=== PATIENT | female | born 1985 | race Caucasian/White ===

== ENCOUNTER 2016-05-03 23:43 | Emergency (ER) | payer SELFPAY ==
[~2016-05-03] VITALS: Ht 162.6 cm; Wt 80.0 kg
[~2016-05-03 23:43] MED LIST: ABIL5TAB6 PO; BECL80AE3 INH; CIPR250T2 PO; TRAZ100 PO; VENTAER INH; ZOLO20CO PO
[2016-05-03 23:46] VITALS: BP 148/89; PULSE 99; RESP 16; TEMP 98; O2SAT 96
[2016-05-04] MEDS ORDERED: SODIUM CHLOR 0.9% 1000 ML INJ 1,000 ML IV ONE (03:07)
[2016-05-04] MEDS ORDERED: ONDANSETRON HCL 4 MG/2 ML VIAL IVP ONE (03:15)
[2016-05-04] MEDS ORDERED: SODIUM CHLORIDE 0.9% FLUSH 5 ML FLUSH IVF PRN (03:15)
--- NOTE | 2016-05-04 03:41 | PD ---
HPI Chief Complaint: GI Complaint Time Seen by Provider: 03:07 Travel History International Travel<30 days: No Contact w/Intl Traveler<30days: No Traveled to known affect area: No History of Present Illness HPI 30 year-old female presents to the emergency department for complaint of nausea vomiting diarrhea and feeling short of breath. Patient states symptoms times one day. No fever or chills. No sore throat earache cough congestion or chest pain. Generalized discomfort 5/10 in intensity. Patient reports history of asthma as a child. PFSH Past Medical History Narrative Medical Asthma, anxiety depression, tubal ligation, tobacco use, nursing notes reviewed Asthma: Yes Respiratory: Yes (ASTHMA) Tetanus Vaccination: > 5 Years Influenza Vaccination: No ?: Not Tubal Ligation: Yes Social History Alcohol Use: No Tobacco Use: No Substance Use: No Allergies-Medications (Allergen,Severity, Reaction): Coded Allergies: Amoxicillin (Verified Allergy, Unknown, 05/03/16) Penicillin (Unverified Allergy, Unknown, Hives, 05/03/16) Reported Meds & Prescriptions Reported Meds & Active Scripts Active Proventil Hfa 6.7 GM Inh (Albuterol Sulfate) 90 Mcg/Act Aer 2 Puff INH Q4-6H PRN Phenergan (Promethazine HCl) 25 Mg Tab 25 Mg PO Q6H PRN Ciprofloxacin Hcl (Ciprofloxacin HCl) 250 Mg Tab 250 Mg PO BID Take for uti on Labs. Qvar 80 mcg (Beclomethasone Dipropionate) 80 Mcg Aer 2 Puff INH BID [id number] 18 Gm Aero 2 Puff INH Q4H PRN * SHAKE WELL BEFORE USE * Reported Trazodone HCl 100 Mg Tab 100 Mg PO HS Abilify 5 mg (Aripiprazole) 5 mg Tab 1 Tab PO DAILY Zoloft (Sertraline HCl) 20 Mg/Ml Con 100 Mg PO DAILY Review of Systems Except as stated in HPI: all other systems reviewed are Neg Physical Exam Narrative GENERAL: Well-developed well-nourished female in no acute distress no respiratory distress SKIN: Warm and dry. HEAD: Normocephalic. EYES: No scleral icterus. No injection or drainage. NECK: Supple, trachea midline. No JVD or lymphadenopathy. CARDIOVASCULAR: Regular rate and rhythm without murmurs, gallops, or rubs. RESPIRATORY: Breath sounds equal bilaterally. No accessory muscle use. GASTROINTESTINAL: Abdomen soft, non-tender, nondistended. MUSCULOSKELETAL: No cyanosis, or edema. BACK: Nontender without obvious deformity. No CVA tenderness. Data Data Last Documented VS Vital Signs Date Time Temp Pulse Resp B/P Pulse Ox O2 Delivery O2 Flow Rate FiO2 05/04/16 05:29 98.1 78 18 108/78 97 Room Air Orders Complete Blood Count With Diff (05/04/16 03:07) Basic Metabolic Panel (Bmp) (05/04/16 03:07) Urinalysis - C+S If Indicated (05/04/16 03:07) Iv Access Insert/Monitor (05/04/16 03:07) Ecg Monitoring (05/04/16 03:07) Oximetry (05/04/16 03:07) Ondansetron Inj (Zofran Inj) (05/04/16 03:15) Sodium Chlor 0.9% 1000 Ml Inj (Ns 1000 M (05/04/16 03:07) Sodium Chloride 0.9% Flush (Ns Flush) (05/04/16 03:15) Ed Urine Pregnancytest Poc (05/04/16 03:07) Acetaminophen (Tylenol) (05/04/16 05:00) Albuterol-Ipratropium Neb (Duoneb Neb) (05/04/16 05:00) Labs Laboratory Tests Test 05/04/16 05/04/16 03:20 05:02 White Blood Count 9.1 TH/MM3 Red Blood Count 4.47 MIL/MM3 Hemoglobin 13.0 GM/DL Hematocrit 38.4 % Mean Corpuscular Volume 86.0 FL Mean Corpuscular Hemoglobin 29.0 PG Mean Corpuscular Hemoglobin 33.7 % Concent Red Cell Distribution Width 13.5 % Platelet Count 258 TH/MM3 Mean Platelet Volume 10.7 FL Neutrophils (%) (Auto) 71.5 % Lymphocytes (%) (Auto) 21.9 % Monocytes (%) (Auto) 4.4 % Eosinophils (%) (Auto) 1.6 % Basophils (%) (Auto) 0.6 % Neutrophils # (Auto) 6.5 TH/MM3 Lymphocytes # (Auto) 2.0 TH/MM3 Monocytes # (Auto) 0.4 TH/MM3 Eosinophils # (Auto) 0.1 TH/MM3 Basophils # (Auto) 0.1 TH/MM3 CBC Comment DIFF FINAL Differential Comment Sodium Level 141 MEQ/L Potassium Level 3.7 MEQ/L Chloride Level 106 MEQ/L Carbon Dioxide Level 24.9 MEQ/L Anion Gap 10 MEQ/L Blood Urea Nitrogen 12 MG/DL Creatinine 0.77 MG/DL Estimat Glomerular Filtration 89 ML/MIN Rate Random Glucose 82 MG/DL Calcium Level 8.7 MG/DL Urine Color YELLOW Urine Turbidity HAZY Urine pH 5.5 Urine Specific [place] 1.028 Urine Protein TRACE mg/dL Urine Glucose (UA) NEG mg/dL Urine Ketones 150 mg/dL Urine Occult Blood NEG Urine Nitrite NEG Urine Bilirubin NEG Urine Urobilinogen LESS THAN 2.0 MG/DL Urine Leukocyte Esterase SMALL Urine RBC 2 /hpf Urine WBC 6 /hpf Urine Squamous Epithelial 9 /hpf Cells Urine Bacteria OCC /hpf Urine Mucus FEW /lpf Microscopic Urinalysis Comment CULT NOT INDICATED MDM Medical Decision Making Medical Screen Exam Complete: Yes Emergency Medical Condition: Yes Medical Record Reviewed: Yes Interpretation(s) Laboratory Tests Test 05/04/16 03:20 White Blood Count 9.1 TH/MM3 Red Blood Count 4.47 MIL/MM3 Hemoglobin 13.0 GM/DL Hematocrit 38.4 % Mean Corpuscular Volume 86.0 FL Mean Corpuscular Hemoglobin 29.0 PG Mean Corpuscular Hemoglobin 33.7 % Concent Red Cell Distribution Width 13.5 % Platelet Count 258 TH/MM3 Mean Platelet Volume 10.7 FL Neutrophils (%) (Auto) 71.5 % Lymphocytes (%) (Auto) 21.9 % Monocytes (%) (Auto) 4.4 % Eosinophils (%) (Auto) 1.6 % Basophils (%) (Auto) 0.6 % Neutrophils # (Auto) 6.5 TH/MM3 Lymphocytes # (Auto) 2.0 TH/MM3 Monocytes # (Auto) 0.4 TH/MM3 Eosinophils # (Auto) 0.1 TH/MM3 Basophils # (Auto) 0.1 TH/MM3 CBC Comment DIFF FINAL Differential Comment Sodium Level 141 MEQ/L Potassium Level 3.7 MEQ/L Chloride Level 106 MEQ/L Carbon Dioxide Level 24.9 MEQ/L Anion Gap 10 MEQ/L Blood Urea Nitrogen 12 MG/DL Creatinine 0.77 MG/DL Estimat Glomerular Filtration 89 ML/MIN Rate Random Glucose 82 MG/DL Calcium Level 8.7 MG/DL Differential Diagnosis Gastroenteritis, dehydration, electronic disturbance, food borne illness, UTI, , asthma Narrative Course IV access obtained specimens collected and sent for resulting patient administered Zofran and normal saline Patient feels markedly improved after IV fluids Zofran and DuoNeb updraft Patient is stable for outpatient management request refill on inhaler patient given prescription for Phenergan Diagnosis Primary Impression: Gastroenteritis Additional Impressions: Asthma Medication refill UTI (urinary tract infection) Referrals: Primary Care Physician call for appointment Patient Instructions: General Instructions Additional Instructions: Increase fluid hydration take medications as prescribed follow-up with your primary care provider return to the emergency department for any concerns or change in condition Med/Other Pt SpecificInfo: Prescription(s) given Scripts Nitrofurantoin Monohydrate Macrocrystals (Macrobid)100 Mg [id number] Mg PO BID 7 Days Ref 0 Prov:Hayley Lazo MD 05/04/16 Albuterol 6.7 GM Inh (Proventil Hfa 6.7 GM Inh)90 Mcg/Act Aer2 Puff INH Q4-6H PRN (SHORTNESS OF BREATH) #1 INHALER Ref 0 Prov:Hayley Lazo MD 05/04/16 Promethazine (Phenergan)25 Mg Tab25 Mg PO Q6H PRN (Nausea/Vomiting) #10 TAB Ref 0 Prov:Hayley Lazo MD 05/04/16 Disposition: 01 DISCHARGE HOME Condition: Stable Hayley Lazo MD May 04, 2016 03:41
[2016-05-04 04:03] LABS: AUTOMATED NEUTROPHIL # 6.5 TH/MM3 (1.8-7.7); BASOPHIL # 0.1 TH/MM3 (0-0.2); BASOPHIL % 0.6 % (0.0-2.0); EOSINOPHIL # 0.1 TH/MM3 (0-0.4); EOSINOPHIL % 1.6 % (0.0-4.0); HEMATOCRIT 38.4 % (35.0-46.0); HEMO FLAGS DIFF FINAL; LYMPH % 21.9 % (9.0-44.0); MEAN CORPUSCULAR HGB CONC 33.7 % (32.0-36.0); MONO % 4.4 % (0.0-8.0); NEUT % 71.5 % (16.0-70.0); PLATELET COUNT 258 TH/MM3 (150-450); RED BLOOD COUNT 4.47 MIL/MM3 (4.00-5.30); RED CELL DISTRIBUTION WIDTH 13.5 % (11.6-17.2); WHITE BLOOD COUNT 9.1 TH/MM3 (4.0-11.0)
[2016-05-04 04:16] LABS: BICARBONATE 24.9 MEQ/L (21.0-32.0); POTASSIUM 3.7 MEQ/L (3.5-5.1)
[2016-05-04 04:35] VITALS: O2SAT 97
[2016-05-04] MEDS ORDERED: RESP: ALBUTEROL 2.5 MG/IPRATROPIUM 0.5 MG NEB (SCH) NEB ONE (05:00)
[2016-05-04] MEDS ORDERED: ACETAMINOPHEN 325 MG TAB PO ONE (05:00)
[2016-05-04 05:29] VITALS: BP 108/78; PULSE 78; RESP 18; TEMP 98.1; O2SAT 97
[2016-05-04] MEDS ORDERED: PROM25TA5 PO (05:36)
[2016-05-04] MEDS ORDERED: ALBU6.7H INH (05:36)
[2016-05-04 06:04] LABS: BACTERIA, URINE OCC /hpf; BLOOD, URINE NEG (NEG); COMMENT (UR) CULT NOT INDICATED; CULTURE IF INDICATED CULT NOT INDICATED; GLUCOSE,URINE NEG (NEG); KETONE, URINE 150 mg/dL (NEG); MUCUS URINE FEW /lpf (OCC); NITRITE,URINE NEG (NEG); PH, URINE 5.5 (5.0-8.5); SQUAMOUS EPITHELIAL CELL URINE 9 /hpf (0-5); URINE COLOR YELLOW (YELLW/STRAW)
[2016-05-04] MEDS ORDERED: MACR100C2 PO (06:17)
== END 2016-05-04 07:15 | disposition home or self-care (01) ==
LOC: NEPC 23:43
DX: K52.9 Noninfective gastroenteritis and colitis, unspecified (principal); J45.909 Unspecified asthma, uncomplicated; Z76.0 Encounter for issue of repeat prescription; N39.0 Urinary tract infection, site not specified
CPT/HCPCS: 80048; 81001; 84703; 85025; 94664; 96374; 99284; J2405; J7030